=== PATIENT | female | born 1995 | race Caucasian/White ===

== ENCOUNTER 2016-07-10 02:02 | Emergency (ER) | payer OTHER ==
[~2016-07-10] VITALS: Ht 157.5 cm; Wt 47.5 kg
[2016-07-10 02:10] VITALS: Ht 157.5 cm; Wt 47.5 kg
[2016-07-10] MEDS ORDERED: KENC1 TOP (05:42)
[2016-07-10] MEDS ORDERED: CLOT30CR24 TOP (05:42)
[2016-07-10] MEDS ORDERED: AZIT250T94 PO (05:44)
[2016-07-10] MEDS ORDERED: BEN25 PO (05:49)
[2016-07-10 05:58] VITALS: TEMP 98.1
--- NOTE | 2016-07-10 06:23 | ERD ---
ER Documentation Chief Complaint Date/Time DATE: 07/10/16 TIME: 06:19 Chief Complaint cough w/ sore throat x 1 week HPI 20-year-old female with no significant past medical history presents the ED complaining of a cough, sore throat that started 1 week ago. Reports that she has tried taking NyQuil and DayQuil without relief of her symptoms. States that she also has a rash since 1 month ago. States that she had the same rash 4 months ago and was resolved with antifungal cream. States that she has not tried applying any recent antifungal cream. Denies any shortness of breath, wheezing, abdominal pain, nausea, vomiting, diarrhea. Her son and also has similar cough cold symptoms. Denies any recent traveling or leg swelling. ROS All systems reviewed and are negative except as per history of present illness. Medications Home Meds Active Scripts Diphenhydramine Hcl* (Benadryl*) 25 Mg Cap, 25 MG PO Q6 Y for ITCHING/RASH, #30 TAB Prov:FANY VALLADARES PA-C 07/10/16 Azithromycin* (Zithromax*) 250 Mg Tablet, 250 MG PO .ZPACK DIRECTED, #6 TAB TAKE 500 MG (2 TABS) THE FIRST DAY THEN 250 MG (1 TAB) DAYS 2-5 Prov:FANY VALLADARES-C 07/10/16 Triamcinolone Acetonide (Triamcinolone Acetonide) 0.1% - 15 Gm Cream.gm., 1 APPLIC TOP BID, #1 TUB Prov:FANY VALLADARES-C 07/10/16 Clotrimazole* (Clotrimazole* AF) 1% - 30 Gm Cream.gm., 1 APPLIC TOP BID for 28 Days, TUB continue for 2-4 weeks until rash has resolved Prov:FANY VALLADARES-C 07/10/16 Allergies Allergies: Coded Allergies: No Known Allergy (Unverified , 07/10/16) PMhx/Soc Medical and Surgical Hx: pt denies Medical Hx, pt denies Surgical Hx Hx Alcohol Use: No Hx Substance Use: No Hx Tobacco Use: No Physical Exam Vitals Vital Signs Date Time Temp Pulse Resp B/P Pulse Ox O2 Delivery O2 Flow Rate FiO2 07/10/16 05:58 98.1 07/10/16 02:10 98.7 89 20 140/75 98 Physical Exam Const: [id number], well-nourished. In no acute distress. Head: Atraumatic, normocephalic Eyes: Normal Conjunctiva without injection. No purulent discharge. PERRL. EOMI ENT: Normal external ear. Ear canal without erythema. Tympanic membrane pearly covarrubias without effusion or bulging. Nasal canal clear with normal turbinates. Moist oropharynx without tonsillar exudates. Non-erythematous pharynx. Uvula midline. No drooling. No trismus. Neck: Full range of motion. No meningismus. No cervical lymphadenopathy. Resp: Clear to auscultation bilaterally. No wheezing, rhonchi, rales, or crackles. No accessory muscle use. No retractions. Cardio: Regular rate and rhythm. No murmurs, rubs or gallops. Abd: Soft, non tender, non distended. Normal bowel sounds. No palpable masses. No rebound tenderness. No guarding. Skin: No petechiae, purpura. Diffuse flaky erythematous rashes with central clearing noted on the bilateral upper extremities and torso. No fluctuance, induration, bleeding noted. Back: No midline tenderness. No CVA tenderness. Ext: No cyanosis, or edema. Neur: Awake and alert. Psych: Normal Mood and Affect Procedures/MDM 20-year-old female with no significant past medical history presents to the ED complaining of cough and sore throat since 1 week ago as well as a rash that started 1 month ago. Patient is afebrile nontoxic appearing. Patient has normal vital signs. Patient's rash is consistent with possible tinea cruris. Other differential diagnosis include but is not limited to allergic contact dermatitis, urticaria, insect bites, cutaneous candidiasis, eczema, scabies, tinea infection, erythema multiforme, Low suspicion for SJS/TEN, sepsis, cellulitis, necrotizing fascitis, or other emergent conditions. This patient presents to the ED with symptoms consistent with bronchitis. Patient is afebrile and has normal vital signs. Patient's physical exam include lungs which were clear to auscultation and a normal pulse oximetry. There is a low suspicion for pneumonia, pneumothorax, pulmonary embolism, epiglottitis, otitis media, otitis externa, viral/strep pharyngitis, sinusitis, peritonsillar abscess , mastoiditis, retropharyngeal abscess, meningitis, sepsis, acute abdomen or other emergent conditions. Fluids, rest, and symptomatic treatment are recommended for the management of patient's symptoms. Discharge medications: Benadryl, Zithromax, triamcinolone, clotrimazole Follow up with primary care physician in 1-2 days. Instructed patient to return to the ED sooner for any worsening symptoms. Patient's questions were answered. Patient understood and agreed with discharge plan. Patient discharged stable. Departure Diagnosis: Primary Impression: Rash and nonspecific skin eruption Condition: Stable Patient Instructions: Self-Care for Skin Rashes, Bronchitis, Antiobiotic Treatment (Adult), Tinea Cruris, General Referrals: [facility] YOU HAVE RECEIVED A MEDICAL SCREENING EXAM AND THE RESULTS INDICATE THAT YOU DO NOT HAVE A CONDITION THAT REQUIRES URGENT TREATMENT IN THE EMERGENCY DEPARTMENT. FURTHER EVALUATION AND TREATMENT OF YOUR CONDITION CAN WAIT UNTIL YOU ARE SEEN IN YOUR DOCTORS OFFICE WITHIN THE NEXT 1-2 DAYS. IT IS YOUR RESPONSIBILITY TO MAKE AN APPOINTMENT FOR FOLOW-UP CARE. IF YOU HAVE A PRIMARY DOCTOR --you should call your primary doctor and schedule an appointment IF YOU DO NOT HAVE A PRIMARY DOCTOR YOU CAN CALL OUR PHYSICIAN REFERRAL HOTLINE AT IF YOU CAN NOT AFFORD TO SEE A PHYSICIAN YOU CAN CHOSE FROM THE FOLLOWING [facility] [address] [facility]. [facility] [address] [facility] [facility] [address] [facility] [facility] [address] [facility] [facility] [address] [facility]. [facility]. [address] [facility]. [facility] YOU HAVE RECEIVED A MEDICAL SCREENING EXAM AND THE RESULTS INDICATE THAT YOU DO NOT HAVE A CONDITION THAT REQUIRES URGENT TREATMENT IN THE EMERGENCY DEPARTMENT. FURTHER EVALUATION AND TREATMENT OF YOUR CONDITION CAN WAIT UNTIL YOU ARE SEEN IN YOUR DOCTORS OFFICE WITHIN THE NEXT 1-2 DAYS. IT IS YOUR RESPONSIBILITY TO MAKE AN APPOINTMENT FOR FOLOW-UP CARE. IF YOU HAVE A PRIMARY DOCTOR --you should call your primary doctor and schedule and appointment IF YOU DO NOT HAVE A PRIMARY DOCTOR YOU CAN CALL OUR PHYSICIAN REFERRAL HOTLINE AT . IF YOU CAN NOT AFFORD TO SEE A PHYSICIAN YOU CAN CHOSE FROM THE FOLLOWING [facility] INSTITUTIONS: [facility] [address] [place] [address] [facility] [address] [place] [address] [facility] [address] [place] [address] [facility] Additional Instructions: FOLLOW UP WITH YOUR PRIMARY CARE PHYSICIAN in 2-3 days for a referral to project engineer chemicals.Return to this facility if you are not improving as expected. FANY VALLADARES PA-C Jul 10, 2016 06:22 FANY VALLADARES PA-C Jul 10, 2016 06:22
== END 2016-07-10 05:58 | disposition home or self-care (01) ==
LOC: FTE 02:02
DX: R21 Rash and other nonspecific skin eruption (principal)
CPT/HCPCS: 99284